=== PATIENT | male | born 2000 | race Two or more races ===

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

== ENCOUNTER 2018-01-14 01:11 | Emergency (ER) | payer SELFPAY ==
[~2018-01-14] VITALS: Ht 175.3 cm; Wt 65.8 kg
[~2018-01-14 01:11] MED LIST changes: +BENTYL10 MG ORAL; +ZOFRAN4 MG ORAL
[2018-01-14] MEDS ORDERED: Ketorolac 30mg Inj IV ONE (01:30)
[2018-01-14 01:32] VITALS: BP 133/84
[2018-01-14 01:53] LABS: BASOPHILS % (AUTO) 0.9 % (0.0-2.0); EOSINOPHILS % (AUTO) 1.2 % (0.0-3.0); HEMOGLOBIN 16.3 G/DL (14.2-18.0); LYMPHOCYTES % (AUTO) 38.3 % (20.0-45.0); MEAN CORPUSCULAR VOLUME 88 FL (80-99); MONOCYTES % (AUTO) 13.8 % (1.0-10.0); NEUTROPHILS % (AUTO) 45.8 % (45.0-75.0); PLATELET COUNT 267 K/UL (150-450); RED CELL DISTRIBUTION WIDTH 10.1 % (11.6-14.8); WHITE BLOOD COUNT 7.5 K/UL (4.8-10.8)
[2018-01-14 01:54] LABS: APPEARANCE,URINE CLEAR; BILIRUBIN, URINE NEGATIVE (NEGATIVE); GLUCOSE, URINE (UA) NEGATIVE (NEGATIVE); KETONES,URINE NEGATIVE (NEGATIVE); LEUKOCYTE ESTERASE ,URINE 1+ (NEGATIVE); NITRITE,URINE NEGATIVE (NEGATIVE); PH,URINE 5 (4.5-8.0); PROTEIN,URINE 1+ (NEGATIVE); UROBILINOGEN,URINE 4 MG/DL (0.0-1.0)
[2018-01-14 01:55] LABS: COLOR,URINE YELLOW
--- NOTE | 2018-01-14 01:56 | Emergency Room Report ---
History of Present Illness General Chief Complaint: Abdominal Pain Source: Patient Present Illness HPI Is a 17-year-old male with no past medical history. He presents with chief complaint abdominal pain his been on and off for months but worse the last 2 weeks. Said he vomited after eating. Pain localized the lower quadrant. He said he has some weight loss. No fever chills area no diarrhea. Pain is 7 out of 10. No urinary complaint. Allergies: Coded Allergies: No Known Allergies (Unverified , 04/29/17) Patient History Past Medical History: see triage record, old chart reviewed Past Surgical History: none Pertinent Family History: none Social History: Denies: smoking Immunizations: other Reviewed Nursing Documentation: PMH: Agreed; PSxH: Agreed Nursing Documentation-PM Past Medical History: No Stated History Review of Systems Eye: Denies: eye pain, blurred vision ENT: Denies: ear pain, nose congestion, throat swelling Respiratory: Denies: cough, shortness of breath Cardiovascular: Denies: chest pain, palpitations Gastrointestinal: Reports: abdominal pain; Denies: diarrhea, nausea, vomiting Musculoskeletal: Denies: back pain, joint pain Skin: Denies: rash Neurological: Denies: headache, numbness Endocrine: Denies: increased thirst, increased urine Hematologic/Lymphatic: Denies: easy bruising All Other Systems: negative except mentioned in HPI Physical Exam Vital Signs Date Time Temp Pulse Resp B/P (MAP) Pulse Ox O2 Delivery O2 Flow Rate FiO2 01/14/18 01:14 98.2 59 16 133/84 96 Room Air 98.2 vitals normal Sp02 EP Interpretation: reviewed, normal General Appearance: well appearing, no apparent distress, alert Head: normocephalic, atraumatic Eyes: bilateral eye PERRL, bilateral eye EOMI ENT: hearing grossly normal, normal pharynx Neck: full range of motion, supple, no meningismus Respiratory: chest non-tender, lungs clear, normal breath sounds Cardiovascular #1: regular rate, rhythm, no murmur Gastrointestinal: normal bowel sounds, no mass, no organomegaly, no bruit, non- distended, tenderness - left lower quadrant Musculoskeletal: back normal, gait/station normal, normal range of motion Psychiatric: mood/affect normal Skin: warm/dry Medical Decision Making Diagnostic Impression: Primary Impression: Proctocolitis Additional Impression: Abdominal pain of unknown etiology ER Course Patient presents with left lower quadrant abdominal pain and CT scan showed colitis and proctitis. Concerning for inflammatory bowel disease. We'll put him on antibiotics and have outpatient referred to see GI doctor. No evidence of obstruction. No evidence of acute abdomen. We'll discharge home. Lab Results Impression labs normal CT/MRI/US Diagnostic Results CT/MRI/US Diagnostic Results : Imaging Test Ordered: CT abdomen and pelvis Impression Read by radiologist. Bowel wall thickening of the colon extending to the rectum. Last Vital Signs Date Time Temp Pulse Resp B/P (MAP) Pulse Ox O2 Delivery O2 Flow Rate FiO2 01/14/18 01:14 98.2 59 16 133/84 96 Room Air 98.2 Status: improved Disposition: HOME, SELF-CARE Condition: Stable Scripts Hydrocodone/Acetaminophen 5-325* (HYDROCODONE/ACETAMINOPHEN 5-325*) 1 Each Tablet 1 TAB ORAL Q6H PRN for For Pain, #10 TAB 0 Refills Prov: STEVEN SONG M.D. 01/14/18 Metronidazole* (FLAGYL*) 500 Mg Tablet 500 MG ORAL BID, #14 TAB Prov: STEVEN SONG M.D. 01/14/18 Ciprofloxacin Hcl* (CIPROFLOXACIN HCL*) 500 Mg Tablet 500 MG ORAL Q12H, #14 TAB 0 Refills Prov: STEVEN SONG M.D. 01/14/18 Additional Instructions: Follow-up with your doctor in 7 days. You will need referral to see a motor vehicle operator road supervisor for colonoscopy. If symptom worsen. STEVEN SONG M.D. Jan 14, 2018 01:56
[2018-01-14 02:11] LABS: ANION GAP 5 mmol/L (5-15); BLOOD UREA NITROGEN 19 mg/dL (7-18); CALCIUM 8.8 MG/DL (8.5-10.1); CARBON DIOXIDE 30 MMOL/L (21-32); CHLORIDE 105 MMOL/L (98-107); POTASSIUM 3.8 MMOL/L (3.5-5.1); SODIUM 140 MMOL/L (136-145)
[2018-01-14 02:15] LABS: ALANINE AMINOTRANSFERASE 106 U/L (12-78); ALBUMIN 4.3 G/DL (3.4-5.0); ALBUMIN/GLOBULIN RATIO 1.1 (1.0-2.7); ALKALINE PHOSPHATASE 107 U/L (46-116); ASPARTATE AMINO TRANSFERASE 44 U/L (15-37); BILIRUBIN,TOTAL 0.6 MG/DL (0.2-1.0)
[2018-01-14] MEDS ORDERED: METRONIDAZOLE500 MG ORAL (03:59)
[2018-01-14] MEDS ORDERED: HYDROCODON-ACE1 EA15 ORAL (03:59)
[2018-01-14] MEDS ORDERED: CIPROFLOXACIN500 M2 ORAL (03:59)
[2018-01-14 04:00] VITALS: BP 126/79
[2018-01-14 04:12] VITALS: BP 126/79
--- NOTE | 2018-01-14 09:35 | Diagnostic Imaging Report ---
Indication: Abdominal pain Technique: Continuous helical transaxial imaging of the abdomen and pelvis was obtained from the lung bases to the pubic symphysis during intravenous contrast administration. Coronal 2-D reformats were also obtained. Study obtained in a Siemens sensation [address] Automatic Exposure Control was utilized. Total Dose length Product (DLP): 540.[address] Dose Index Volume (CTDIvol): 10.31 mGy Comparison: 04/29/2017 Findings: The lung bases appear clear. The liver and spleen, pancreas and kidneys, gallbladder appear unremarkable. Bowel gas pattern is normal. Small nodes seen in the mesentery nonspecific. Appendix is normal. The colon is diffusely underdistended especially the rectosigmoid region. Evaluation is thereby limited. No free fluid or free air seen. IMPRESSION: No acute findings appreciated. The CT scanner at [facility] is accredited by the [employer] and the scans are performed using dose optimization techniques as appropriate to a performed exam including Automatic Exposure control.
== END 2018-01-14 04:12 | disposition home or self-care (01) ==
LOC: EMR 01:30
DX: K51.30 Ulcerative (chronic) rectosigmoiditis without complications (principal)
CPT/HCPCS: 36415; 74177; 80053; 81003; 83690; 85025; 96374; 96375; 99284; J1885; Q9967

== ENCOUNTER 2019-01-25 23:51 | Emergency (ER) | payer OTHER, MEDICAID ==
[~2019-01-25] VITALS: Ht 175.3 cm; Wt 62.6 kg
[~2019-01-25 23:51] MED LIST changes: +CIPROFLOXACIN500 M2 ORAL; +HYDROCODON-ACE1 EA15 ORAL; +METRONIDAZOLE500 MG ORAL
[2019-01-25] MEDS ORDERED: NKM (23:56)
[2019-01-26 00:02] VITALS: BP 123/65
--- NOTE | 2019-01-26 00:05 | NUR ---
ED Nurse Note: Patient walked in to ER with steady gait, c/o left side neck pain, per patient it is painful to swalow. AAO x4, VSS at this time, skin is dry, intact.
--- NOTE | 2019-01-26 00:14 | Emergency Room Report ---
History of Present Illness General Chief Complaint: Neck Pain Source: Patient Present Illness HPI This is a 18-year-old male with no past medical history. He presents with chief complaint of neck pain. Onset for 1 day. Worse with movement. No fever chills. No nausea no vomiting. Denies any other complaint. Pain is 8 out of 10. Allergies: Coded Allergies: No Known Allergies (Unverified , 04/29/17) Patient History Past Medical History: none, see triage record, old chart reviewed Past Surgical History: none Pertinent Family History: none Social History: Denies: smoking Immunizations: other Reviewed Nursing Documentation: PMH: Agreed; PSxH: Agreed Nursing Documentation-PMH Past Medical History: No Stated History Review of Systems Eye: Denies: eye pain, blurred vision ENT: Denies: ear pain, nose congestion, throat swelling Respiratory: Denies: cough, shortness of breath Cardiovascular: Denies: chest pain, palpitations Gastrointestinal: Denies: abdominal pain, diarrhea, nausea, vomiting Musculoskeletal: Denies: back pain, joint pain Skin: Denies: rash Neurological: Denies: headache, numbness Endocrine: Denies: increased thirst, increased urine Hematologic/Lymphatic: Denies: easy bruising All Other Systems: negative except mentioned in HPI Physical Exam Vital Signs Date Time Temp Pulse Resp B/P (MAP) Pulse Ox O2 Delivery O2 Flow Rate FiO2 01/25/19 23:53 98.1 62 12 123/65 94 Room Air vitals normal Sp02 EP Interpretation: reviewed, normal General Appearance: well appearing, no apparent distress, alert Head: normocephalic, atraumatic Eyes: bilateral eye PERRL, bilateral eye EOMI ENT: hearing grossly normal, normal pharynx, other - Poor dentition Neck: full range of motion, supple, no meningismus, tender - Tender to the left sternocleidomastoid neck muscle Respiratory: chest non-tender, lungs clear, normal breath sounds Cardiovascular #1: regular rate, rhythm, no murmur Gastrointestinal: normal bowel sounds, non tender, no mass, no organomegaly, no bruit, non-distended Musculoskeletal: back normal, gait/station normal, normal range of motion Psychiatric: mood/affect normal Skin: warm/dry Medical Decision Making Diagnostic Impression: Primary Impression: Neck pain ER Course History with neck pain. This may be a cervical strain. He does have poor dentition and some dental pain to the left molar area. Put him on antibiotics but no evidence of any abscess seen. No evidence of any dissection. No bruit. Last Vital Signs Date Time Temp Pulse Resp B/P (MAP) Pulse Ox O2 Delivery O2 Flow Rate FiO2 01/26/19 00:02 98.1 12 123/65 94 Room Air 01/25/19 23:53 62 Status: unchanged Disposition: HOME, SELF-CARE Condition: Stable Scripts Amoxicillin* (AMOXIL*) 500 Mg Capsule 500 MG ORAL THREE TIMES A DAY, #21 CAP Prov: Juliano Aparicio MD 01/26/19 Ibuprofen* (MOTRIN*) 600 Mg Tablet 600 MG ORAL THREE TIMES A DAY, #30 TAB 0 Refills Prov: Juliano Aparicio MD 01/26/19 Referrals: [facility],REFERRING (PCP) Additional Instructions: Follow-up with your doctor in 7 days. Return if symptom worsen. Juliano Aparicio MD Jan 26, 2019 00:14
[2019-01-26] MEDS ORDERED: IBUPROFEN600 MG ORAL (00:18)
[2019-01-26] MEDS ORDERED: AMOXICILLIN500 MG ORAL (00:18)
[2019-01-26 00:23] VITALS: BP 123/65
--- NOTE | 2019-01-26 00:24 | NUR ---
ED Nurse Note: Pt cleared by health care Provider for discharge. DC instructions/prescription was given and explained to pt and verbalized understanding of teachings. All medical deviecs such as ID band removed. Pt is AAO x4, ambulatory and left with all personal belongings.
[2019-07-21] MEDS ORDERED: ONDANSETRON ODT4 MG BC (13:33)
== END 2019-01-26 00:23 | disposition home or self-care (01) ==
LOC: EMR 23:59
DX: M54.2 Cervicalgia (principal)
CPT/HCPCS: 99281